=== PATIENT | female | born 1955 | race Two or more races ===

== ENCOUNTER 2021-07-04 21:14 | Emergency (ER) | payer OTHER ==
[~2021-07-04] VITALS: Ht 157.5 cm; Wt 61.2 kg
[2021-07-04] MEDS ORDERED: SYNTHROID112 MCG PO (21:45)
[2021-07-05] MEDS ORDERED: DOLOGESIC-DF 51 EACH PO (02:08)
== END 2021-07-05 02:55 ==
LOC: ER 21:14
DX: U07.1 COVID-19 (principal); B34.9 Viral infection, unspecified